=== PATIENT | female | born 1995 | race Caucasian/White ===

== ENCOUNTER 2016-12-30 18:25 | Emergency (ER) | payer OTHER ==
[2016-12-30 18:46] VITALS: TEMP 98.5
--- NOTE | 2016-12-30 19:49 | ED ---
Psych HPI - General Chief Complaint: Psychiatric Symptoms Stated Complaint: panic attack Time Seen by Provider: 12/30/16 18:56 Source: patient, RN notes reviewed Mode of arrival: ambulatory - History of Present Illness Initial Comments: Patient is a 21-year-old female with a chief complaint of anxiety and hypervigilance for approximately 3 years. Patient reports that she had a anxiety attack today which brought her into the emergency department. She denies any suicidal ideations. She states that she does not want any medication for anxiety but just wants to talk to us appear seek psychiatric help. She reports that she is supposed to see Dr. Zambrano this 2 weeks ago however the appointment became canceled for an emergency reason. Patient denies any homicidal ideations or any auditory or visual hallucinations. She reports that she is constantly on edge and feels like her stress levels an 8 out of 10. She states it takes very little to force her to become to have an anxiety attack. She states that her anxiety has been caused her to be depressed. The patient every once leave her house. She denies any self-harm. - Related Data Previous Rx's Medication Instructions Recorded LORazepam [Ativan] 0.5 mg PO BID #10 tab 12/30/16 Allergies Allergy/AdvReac Type Severity Reaction Status Date / Time No Known Allergies Allergy Verified 12/30/16 19:10 Review of Systems ROS Statement: Those systems with pertinent positive or pertinent negative responses have been documented in the HPI. ROS Other: All systems not noted in ROS Statement are negative. Past Medical History Additional Past Medical History / Comment(s): sinus problems, seasonal allergies History of Any Multi-Drug Resistant Organisms: None Reported Past Surgical History: Orthopedic Surgery Past Psychological History: No Psychological Hx Reported Smoking Status: Never smoker Past Alcohol Use History: Occasional Past Drug Use History: None Reported General Exam - General Exam Comments Initial Comments: Well-appearing 20-year-old 1-year-old female. She doesn't appear to be in any acute distress. Limitations: no limitations General appearance: alert, in no apparent distress Head exam: Present: atraumatic, normocephalic, normal inspection Eye exam: Present: normal appearance, PERRL, EOMI. Absent: scleral icterus, conjunctival injection, periorbital swelling ENT exam: Present: normal exam, mucous membranes moist Neck exam: Present: normal inspection. Absent: tenderness, meningismus, lymphadenopathy Respiratory exam: Present: normal lung sounds bilaterally. Absent: respiratory distress, wheezes, rales, rhonchi, stridor Cardiovascular Exam: Present: regular rate, normal rhythm, normal heart sounds. Absent: systolic murmur, diastolic murmur, rubs, gallop, clicks GI/Abdominal exam: Present: soft, normal bowel sounds. Absent: distended, tenderness, guarding, rebound, rigid Extremities exam: Present: normal inspection, full ROM, normal capillary refill. Absent: tenderness, pedal edema, joint swelling, calf tenderness Back exam: Present: normal inspection Neurological exam: Present: alert, oriented X3, CN II-XII intact Psychiatric exam: Present: normal affect, normal mood, anxious (Patient reports that she is anxious but denies any suicidal or homicidal ideations. She reports this is chronic anxiety.) Skin exam: Present: warm, dry, intact, normal color. Absent: rash Course Vital Signs 12/30/16 12/30/16 18:43 21:32 Temperature 98.5 F Pulse Rate 95 83 Respiratory 18 16 Rate Blood Pressure 122/78 138/74 O2 Sat by Pulse 99 100 Oximetry Medical Decision Making - Medical Decision Making Patient is a well-appearing 21-year-old female. She has a history of anxiety and depression. She denies any suicidal plan the side ideations. Patient will be seen by EPS at this time is medically clear. Patient discussed emotions with the EPS nurse. Patient will be given outpatient referrals for psychiatrist and feels much better at this time. Patient requests acute angiolytic medication at this time. I discussed the possibility of addiction and patient agrees that she does not take it regularly.. I will give the patient 1 mg of Ativan emergency department for a go home and to put her mind at ease and to rest. I will write the patient for a short prescription for Ativan. Patient understands that she needs to follow-up with primary care doctor to be evaluated and received the proper medication for her psychiatric illnesses. Patient understands treatment plan will comply. Return parameters were discussed. - Lab Data Lab Results 12/30/16 Range/Units 20:14 Urine Opiates Screen Not Detected (NotDetected) Ur Oxycodone Screen Not Detected (NotDetected) Urine Methadone Screen Not Detected (NotDetected) Ur Propoxyphene Screen Not Detected (NotDetected) Ur Barbiturates Screen Not Detected (NotDetected) U Tricyclic Antidepress Not Detected (NotDetected) Ur Phencyclidine Scrn Not Detected (NotDetected) Ur Amphetamines Screen Not Detected (NotDetected) U Methamphetamines Scrn Not Detected (NotDetected) U Benzodiazepines Scrn Not Detected (NotDetected) Urine Cocaine Screen Not Detected (NotDetected) U Marijuana (THC) Screen Detected H (NotDetected) Disposition Clinical Impression: Anxiety Disposition: HOME SELF-CARE Condition: Good Instructions: Anxiety (ED) Additional Instructions: Patient finds to follow-up with outpatient referrals. Return to emergency department if any alarming signs or symptoms occur. Prescriptions: LORazepam [Ativan] 0.5 mg PO BID #10 tab Referrals: Jordy Martin Jr, DO [Primary Care Provider] - 1-2 days Time of Disposition: 21:21
[2016-12-30] MEDS ORDERED: LORazepam 1 MG TAB PO STA (21:20)
[2016-12-30 21:33] VITALS: BP 138/74; PULSE 83; RESP 16
== END 2016-12-30 21:32 | disposition home or self-care (01) ==
LOC: EC 18:25
DX: F41.9 Anxiety disorder, unspecified (principal); F32.9 Major depressive disorder, single episode, unspecified
CPT/HCPCS: 80306; 82075; 99284

== ENCOUNTER → 2019-02-15 | Outpatient (CLI) | payer OTHER ==
--- NOTE | 2019-02-15 15:44 | US ---
EXAMINATION TYPE: US kidneys/renal and bladder DATE OF EXAM: 02/15/2019 COMPARISON: US 2015 ABD CLINICAL HISTORY: frequent UTI,and cystitis N30.01. Frequent/recurrent UTIs. EXAM MEASUREMENTS: Right Kidney: 9.1 x 4.9 x 4.8 cm Left Kidney: 10.1 x 5.0 x 5.0 cm Post Void Residual Volume: Not performed Large body habitus. Difficult, limited exam. Right Kidney: No hydronephrosis or masses seen Left Kidney: No hydronephrosis or masses seen Bladder: appears anechoic. Bilateral Jets seen: Yes IMPRESSION: No hydronephrosis or nephrolithiasis. Urinary bladder appears anechoic without focal wall thickening. No sonographic sequela of medical renal disease.
== END | disposition home or self-care (01) ==
LOC: RADUSWWP 14:09
PROVIDERS: ATTEND Family Medicine
DX: N30.01 Acute cystitis with hematuria (principal)
CPT/HCPCS: 76770

== ENCOUNTER → 2021-08-14 | Outpatient (CLI) | payer BC, OTHER ==
[2021-08-14 13:50] LABS: Basophils % (A) 0 %; Eosinophils # (A) 0.3 k/uL (0-0.7); Eosinophils % (A) 5 %; HCT 41.3 % (34.0-46.0); HGB 13.5 gm/dL (11.4-16.0); Lymphocytes # (A) 2.2 k/uL (1.0-4.8); Lymphocytes % (A) 35 %; MCH 28.8 pg (25.0-35.0); MCHC 32.6 g/dL (31.0-37.0); MCV 88.3 fL (80.0-100.0); Mean Platelet Volume 7.7; Monocytes # (A) 0.3 k/uL (0-1.0); Monocytes % (A) 4 %; Neutrophils # (A) 3.3 k/uL (1.3-7.7); Neutrophils % (A) 53 %; Platelet Count 315 k/uL (150-450); RBC 4.68 m/uL (3.80-5.40); RDW 12.5 % (11.5-15.5); WBC 6.3 k/uL (3.8-10.6)
== END | disposition home or self-care (01) ==
LOC: LABPAT 11:50
PROVIDERS: ATTEND Obstetrics & Gynecology
DX: Z01.812 Encounter for preprocedural laboratory examination (principal)
CPT/HCPCS: 85025

== ENCOUNTER 2021-08-17 06:23 | Day surgery (SDC) | payer BC, OTHER ==
[2021-08-14 13:13] VITALS: BMI 33.7
--- NOTE | 2021-08-16 20:24 | P.HPOB ---
History of Present Illness H&P Date: 08/16/21 Chief Complaint: Recurrent Bartholin's cyst This is a 26 y.o. female, 0, para 0, who presents for exam under anesthesia and drainage of recurrent right bartholin's cyst with abscess, possible word catheter placement. She has been having symptoms off and on for at least a couple years. The area swells and gets tender. Any time she drinks caffeine or alcohol, her symptoms worsen. She is unable to tolerate a pelvic exam in the office due to pain. OB Hx: G0. [employer] Member Hx: Currently sexually active with 1 partner. Uses condoms. No history of STDs. Social Hx: Single. Babysits. Review of Systems Constitutional: Reports night sweats, Denies chills, Denies fever Eyes: denies blurred vision, denies pain Ears, nose, mouth and throat: Denies headache, Denies sore throat Cardiovascular: Denies chest pain, Denies shortness of breath Respiratory: Denies cough Gastrointestinal: Reports bloating, Denies abdominal pain, Denies diarrhea, Denies nausea, Denies vomiting Genitourinary: Reports dysmenorrhea, Reports pelvic pain, Reports urinary frequency Menstruation: Reports menses variable Musculoskeletal: Denies myalgias Integumentary: Denies pruritus, Denies rash Neurological: Denies numbness, Denies weakness Psychiatric: Reports anxiety, Reports depression, Reports difficulty concentrating, Reports irritability Endocrine: Reports flushing Past Medical History Past Medical History: Thyroid Disorder Additional Past Medical History / Comment(s): Sinus problems, seasonal allergies. History of Any Multi-Drug Resistant Organisms: None Reported Past Surgical History: Orthopedic Surgery Additional Past Surgical History / Comment(s): Right ankle surgery with screws. [place] teeth. Past Anesthesia/Blood Transfusion Reactions: No Reported Reaction, Motion Sickness Past Psychological History: ADD/ADHD, Anxiety Smoking Status: Never smoker Past Alcohol Use History: Occasional Past Drug Use History: None Reported - Past Family History Mother History Unknown: Yes Family Medical History: Thyroid Disorder Father History Unknown: Yes Family Medical History: Diabetes Mellitus Medications and Allergies Home Medications Medication Instructions Recorded Confirmed Type Levothyroxine Sodium 125 mcg PO QAM 08/14/21 08/14/21 History Lisdexamfetamine Dimesylate 40 mg PO DAILY 08/14/21 08/14/21 History [Vyvanse] Allergies Allergy/AdvReac Type Severity Reaction Status Date / Time No Known Allergies Allergy Verified 08/17/21 06:45 Exam Osteopathic Statement: *. No significant issues noted on an osteopathic structural exam other than those noted in the History and Physical/Consult. HEENT: within normal limits Heart: regular rate and rhythm Lungs: clear to auscultation bilaterally Abdomen: soft, non-tender Pelvic: Exquisitely tender right Bartholin's gland cyst, swollen, tender. Remainder of pelvic exam deferred to OR due to pain. Extremities: neg. Thomas's. Assessment and Plan (1) Bartholin's gland abscess Current Visit: No Status: Acute Code(s): N75.1 - ABSCESS OF BARTHOLIN'S GLAND SNOMED Code(s): 98727761 Plan: Proceed with examination under anesthesia, drainage of right Bartholin's gland cyst abscess, possible word catheter placement. I have discussed the risks, benefits, and alternative therapies for the above- mentioned procedure and for both sedation/anesthesia as well as necessary blood products administration, if indicated, as they pertain to this patient. The patient has indicated her understanding and acceptance of the risks and procedures discussed.
[~2021-08-17 06:23] MED LIST: DEXAMETHASONE SOD PHOSPHATE 4 MG/ML 1 ML VIAL IV ONE; LACTATED RINGERS 1,000 ML IV SCH; LIDOCAINE 1% (10MG/ML) FOR IV START INTRADERMA PRN; ONDANSETRON 4 MG/2 ML VIAL IVP ONE; SCOPOLAMINE 1.5MG/72HR PATCH TRANSDERM ONE
[2021-08-17] MEDS ORDERED: HYDROmorphone 0.5 MG/0.5 ML SYRINGE IVP PRN (07:00)
[2021-08-17] MEDS ORDERED: MIDAZOLAM 2 MG/2 ML VIAL IV ONE (07:10)
[2021-08-17] MEDS ORDERED: MIDAZOLAM 2 MG/2 ML VIAL ONE (07:35)
[2021-08-17] MEDS ORDERED: LIDOCAINE 1% INJ 10MG/ML (20 ML MDV) ONE (07:35)
[2021-08-17] MEDS ORDERED: fentaNYL (PF) 50 MCG/ML 2 ML AMP ONE (07:35)
[2021-08-17] MEDS ORDERED: PROPOFOL 10 MG/ML 20 ML VIAL IV ONE (07:35)
[2021-08-17] MEDS ORDERED: KETOROLAC 15 MG/ML 1 ML VIAL ONE (07:35)
--- NOTE | 2021-08-17 08:19 | P.OP ---
Date of Procedure: 08/17/21 Preoperative Diagnosis: Right Bartholin's gland cyst abscess Postoperative Diagnosis: Same Procedure(s) Performed: Marsupialization of right Bartholin's gland cyst abscess Examination under anesthesia Anesthesia: other (LMA general) Surgeon: Licha Hernandez Estimated Blood Loss (ml): 15 Pathology: none sent Condition: stable Disposition: same day Indications for Procedure: This is a 26 y.o. female, 0, para 0, who presents for exam under anesthesia and drainage of recurrent right bartholin's cyst with abscess, possible word catheter placement. She has been having symptoms off and on for at least a couple years. The area swells and gets tender. Any time she drinks caffeine or alcohol, her symptoms worsen. She is unable to tolerate a pelvic exam in the office due to pain. Operative Findings: A very large right Bartholin's gland cyst abscess is noted. A large amount of yellow pussy discharge is extruded from the cyst. On pelvic exam, the patient is on her menses. Uterus is found to be small, anteverted, with no adnexal masses palpated. Description of Procedure: The patient is taken to the operating room where she is placed in the dorsal lithotomy position. Her bladder is drained with a catheter and then removed. A visible large right Bartholin's gland cyst is noted that extends all the way up to the upper right labia. The patient is noted to be on her menses. A pelvic exam is performed and uterus is found to be anteverted, small, with no adnexal masses elevated. The left Bartholin's gland appears normal. Next a 15 blade is used to incise the right Bartholin's gland cyst abscess just outside of the hymenal ring the right side. A large amount of yellow brown pussy fluid is drained. Next the small cuts is sewn open with 3-0 Vicryl suture in a running locked fashion around the edges of the cut, in order to keep the cut open. A second layer of 0 Vicryl suture in a running locked fashion is used for hemostasis. One interrupted stitches placed on the inner edge of the suture line to control bleeding. A hemostat is placed within the cut to make sure that it is still open. It is still draining brownish fluid. Minimal bleeding is noted. All instruments are removed from the patient. Sponge and needle counts are correct. The patient is then taken to recovery room in stable condition.
[2021-08-17 08:33] VITALS: TEMP 98.1
[2021-08-17 08:54] VITALS: RESP 18
[2021-08-17] MEDS ORDERED: ACETAMINOPHEN TAB 500 MG TAB ONE (09:02)
[2021-08-17] MEDS ORDERED: ACETAMINOPHEN TAB 500 MG TAB PO ONE (09:03)
[2021-08-17 09:06] VITALS: BP 101/56; PULSE 67
== END 2021-08-17 09:35 | disposition home or self-care (01) ==
LOC: OR 06:23
PROVIDERS: ATTEND Obstetrics & Gynecology
DX: N75.0 Cyst of Bartholin's gland (principal); F90.9 Attention-deficit hyperactivity disorder, unspecified type; Z79.899 Other long term (current) drug therapy; Z83.3 Family history of diabetes mellitus; Z83.49 Family history of other endocrine, nutritional and metabolic diseases
CPT/HCPCS: 56440; 81025; J2250; J1100; J0690; J2405; J2001; J3010; J1885; J2704; J1170

== ENCOUNTER 2021-08-27 16:54 | Emergency (ER) | payer BC, OTHER ==
[2021-08-27 17:51] VITALS: TEMP 97.4
[2021-08-27] MEDS ORDERED: SODIUM CHLORIDE 0.9% 1,000 ML IV STA (19:58)
--- NOTE | 2021-08-27 20:02 | ED ---
General Adult HPI - General Chief complaint: Dizziness Stated complaint: Dizzy, nausea Time Seen by Provider: 08/27/21 19:47 Source: patient, RN notes reviewed, old records reviewed Mode of arrival: ambulatory Limitations: no limitations - History of Present Illness Initial comments: Well-appearing 26-year-old female presents to the emergency room with complaints of 1 month of feeling intermittent dizziness and brain fog with occasional shortness of breath. She states that she has seen her primary care doctor and had her thyroid levels checked. She also recently had a Bartholin's gland cyst surgery on August 17. She states that she is not sure what is causing her feelings of dizziness and intermittent shortness of breath and brain fog however she is concerned about Covid She states that she did get a vaccine. She denies any fevers, vomiting or diarrhea. She states sometimes her shortness of breath will get better if she takes her mask off. She denies any alcohol or drug use and she is a nonsmoker. -: month(s) (1) Location: head ("foggy") Severity scale (1-10): 0 Consistency: intermittent Associated Symptoms: shortness of breath, other (fatigue) - Related Data Home Medications Medication Instructions Recorded Confirmed Levothyroxine Sodium 125 mcg PO QAM 08/14/21 08/14/21 Lisdexamfetamine Dimesylate 40 mg PO DAILY 08/14/21 08/14/21 [Vyvanse] Previous Rx's Medication Instructions Recorded Sulfamethox-Tmp 800-160Mg [Bactrim 1 each PO Q12HR 3 Days #6 tab 08/27/21 Ds] Allergies Allergy/AdvReac Type Severity Reaction Status Date / Time No Known Allergies Allergy Verified 08/27/21 17:45 Review of Systems ROS Statement: Those systems with pertinent positive or pertinent negative responses have been documented in the HPI. ROS Other: All systems not noted in ROS Statement are negative. Past Medical History Additional Past Medical History / Comment(s): sinus problems, seasonal allergies History of Any Multi-Drug Resistant Organisms: None Reported Past Surgical History: Orthopedic Surgery Past Psychological History: No Psychological Hx Reported Smoking Status: Never smoker Past Alcohol Use History: Occasional Past Drug Use History: None Reported General Exam Limitations: no limitations General appearance: alert, in no apparent distress Head exam: Present: atraumatic, normocephalic, normal inspection Eye exam: Present: normal appearance, EOMI ENT exam: Present: normal exam, mucous membranes moist Neck exam: Present: normal inspection, full ROM Respiratory exam: Present: normal lung sounds bilaterally. Absent: respiratory distress, wheezes, rales, rhonchi, stridor Cardiovascular Exam: Present: regular rate, normal rhythm, normal heart sounds. Absent: systolic murmur, diastolic murmur, rubs, gallop, clicks, JVD GI/Abdominal exam: Present: soft, normal bowel sounds. Absent: distended, tenderness, guarding, rebound, rigid Extremities exam: Present: full ROM. Absent: pedal edema Neurological exam: Present: alert, oriented X3 Psychiatric exam: Present: normal affect, normal mood, other (tearful) Skin exam: Present: warm, dry, intact, normal color. Absent: rash, cyanosis, diaphoretic Course Vital Signs 08/27/21 08/27/21 17:45 22:28 Temperature 97.4 F L Pulse Rate 80 74 Respiratory 20 18 Rate Blood Pressure 133/82 115/80 O2 Sat by Pulse 99 98 Oximetry EKG Findings - EKG Results: EKG: sinus rhythm (Ventricular rate 62, NM interval 0.158, QRS 0.76, QTC 0.410) Medical Decision Making - Medical Decision Making This is a well-appearing anxious 26-year-old female who presents to the emergency room with complaints of just not feeling herself. She had a Bartholin's gland abscess drained on August [address] Hernandez. Lab work shows no evidence of leukocytosis. Electrolytes are unremarkable. Patient was found to have a urinary tract infection. Her abdomen is soft and nontender. She'll be treated with Bactrim. She was also given Zofran as requested for any nausea. Chad thompson instructed to follow-up with her primary care doctor next week. Return to the emergency room with any worsening symptoms. Patient is agreeable to this plan of care. Case discussed with Dr. Cohen. - Lab Data Result diagrams: 08/27/21 20:15 08/27/21 20:15 Lab Results 08/27/21 08/27/21 08/27/21 Range/Units 20:15 20:15 20:15 WBC 7.5 (3.8-10.6) k/uL RBC 4.78 (3.80-5.40) m/uL Hgb 14.3 (11.4-16.0) gm/dL Hct 41.1 (34.0-46.0) % MCV 86.0 (80.0-100.0) fL MCH 29.9 (25.0-35.0) pg MCHC 34.8 (31.0-37.0) g/dL RDW 12.9 (11.5-15.5) % Plt Count 321 (150-450) k/uL MPV 7.5 Neutrophils % 52 % Lymphocytes % 37 % Monocytes % 4 % Eosinophils % 4 % Basophils % 0 % Neutrophils # 3.9 (1.3-7.7) k/uL Lymphocytes # 2.8 (1.0-4.8) k/uL Monocytes # 0.3 (0-1.0) k/uL Eosinophils # 0.3 (0-0.7) k/uL Basophils # 0.0 (0-0.2) k/uL Sodium 139 (137-145) mmol/L Potassium 4.3 (3.5-5.1) mmol/L Chloride 106 (98-107) mmol/L Carbon Dioxide 24 (22-30) mmol/L Anion Gap 9 mmol/L BUN 9 (7-17) mg/dL Creatinine 0.59 (0.52-1.04) mg/dL Est GFR (CKD-EPI)AfAm >90 (>60 ml/min/1.73 sqM) Est GFR (CKD-EPI)NonAf >90 (>60 ml/min/1.73 sqM) Glucose 100 H (74-99) mg/dL Calcium 10.1 (8.4-10.2) mg/dL Total Bilirubin 0.4 (0.2-1.3) mg/dL AST 24 (14-36) U/L ALT 23 (4-34) U/L Alkaline Phosphatase 60 (38-126) U/L Total Protein 7.5 (6.3-8.2) g/dL Albumin 4.6 (3.5-5.0) g/dL Urine Color Yellow Urine Appearance Cloudy H (Clear) Urine pH 5.5 (5.0-8.0) Ur Specific [place] 1.021 (1.001-1.035) Urine Protein Negative (Negative) Urine Glucose (UA) Negative (Negative) Urine Ketones Negative (Negative) Urine Blood Negative (Negative) Urine Nitrite Negative (Negative) Urine Bilirubin Negative (Negative) Urine Urobilinogen <2.0 (<2.0) mg/dL Ur Leukocyte Esterase Large H (Negative) Urine RBC 3 (0-5) /hpf Urine WBC 14 H (0-5) /hpf Ur Squamous Epith Cells 3 (0-4) /hpf Urine Bacteria Moderate H (None) /hpf Urine Mucus Rare H (None) /hpf Disposition Clinical Impression: UTI (urinary tract infection) Disposition: HOME SELF-CARE Condition: Good Instructions (If sedation given, give patient instructions): Urinary Tract Infection in Women (ED) Additional Instructions: Take medication as prescribed and follow-up with her primary care doctor next week. Return to the emergency room with any new or worsening symptoms. Increase your fluid intake. Prescriptions: Sulfamethox-Tmp 800-160Mg [Bactrim Ds] 1 each PO Q12HR 3 Days #6 tab Is patient prescribed a controlled substance at d/c from ED?: No Referrals: Jordy Martin Jr, [Primary Care Provider] - 1-2 days Time of Disposition: 22:10
[2021-08-27 20:23] LABS: Basophils % (A) 0 %; Eosinophils # (A) 0.3 k/uL (0-0.7); Eosinophils % (A) 4 %; HCT 41.1 % (34.0-46.0); HGB 14.3 gm/dL (11.4-16.0); Lymphocytes # (A) 2.8 k/uL (1.0-4.8); Lymphocytes % (A) 37 %; MCH 29.9 pg (25.0-35.0); MCHC 34.8 g/dL (31.0-37.0); Mean Platelet Volume 7.5; Monocytes # (A) 0.3 k/uL (0-1.0); Monocytes % (A) 4 %; Neutrophils # (A) 3.9 k/uL (1.3-7.7); Neutrophils % (A) 52 %; Platelet Count 321 k/uL (150-450); RBC 4.78 m/uL (3.80-5.40); RDW 12.9 % (11.5-15.5); WBC 7.5 k/uL (3.8-10.6)
[2021-08-27 20:31] LABS: ALT 23 U/L (4-34); AST 24 U/L (14-36); African American GFR (CKD) >90 (>60 ml/min/1.73 sqM); Albumin 4.6 g/dL (3.5-5.0); Alkaline Phosphatase 60 U/L (38-126); Anion Gap 9 mmol/L; Blood Urea Nitrogen 9 mg/dL (7-17); Calcium 10.1 mg/dL (8.4-10.2); Carbon Dioxide 24 mmol/L (22-30); Chloride 106 mmol/L (98-107); Glucose 100 mg/dL (74-99); Non-African American GFR(CKD) >90 (>60 ml/min/1.73 sqM); Potassium 4.3 mmol/L (3.5-5.1); Sodium 139 mmol/L (137-145); Total Bilirubin 0.4 mg/dL (0.2-1.3); Total Protein 7.5 g/dL (6.3-8.2)
[2021-08-27] MEDS ORDERED: ONDANSETRON 4 MG/2 ML VIAL IVP STA (21:26)
[2021-08-27] MEDS: ONDANSETRON 4 MG TAB PO STA ×2 (21:39→21:40)
[2021-08-27] MEDS ORDERED: ONDANSETRON ODT 4 MG TAB PO STA (21:40)
[2021-08-27 21:44] LABS: Appearance,Urine Cloudy (Clear); Bacteria,Urine Moderate /hpf; Bilirubin,Urine Negative (Negative); Blood,Urine Negative (Negative); Color,Urine Yellow; Glucose,Urine (UA) Negative (Negative); Ketones,Urine Negative (Negative); Leukocyte Esterase,Urine Large (Negative); Mucus,Urine Rare /hpf; Nitrite,Urine Negative (Negative); PH, Urine 5.5 (5.0-8.0); Protein,Urine Negative (Negative); RBC,Urine 3 /hpf (0-5); Specific Gravity,Urine 1.021 (1.001-1.035); Squamous Epithelial Cell,Urine 3 /hpf (0-4); Urobilinogen,Urine <2.0 mg/dL (<2.0); WBC,Urine 14 /hpf (0-5)
[2021-08-27] MEDS ORDERED: SULFAMETHOX-TMP 800-160MG 1 EACH TAB PO STA (22:04)
[2021-08-27] MEDS ORDERED: ONDANSETRON 4 MG ODT STARTER PACK 2 TAB BTL PO STA (22:05)
[2021-08-27 22:30] VITALS: BP 115/80; PULSE 74; RESP 18
== END 2021-08-27 22:29 | disposition home or self-care (01) ==
LOC: EC 16:54
DX: N39.0 Urinary tract infection, site not specified (principal)
CPT/HCPCS: 99285; 96360; 36415; 93005; 80053; 85025; 81001; 87086; S0119

== ENCOUNTER → 2021-10-31 | Outpatient (CLI) | payer OTHER ==
[2021-10-31 12:23] LABS: Basophils % (A) 1 %; Eosinophils # (A) 0.4 k/uL (0-0.7); Eosinophils % (A) 7 %; HCT 42.5 % (34.0-46.0); HGB 13.8 gm/dL (11.4-16.0); Lymphocytes % (A) 36 %; MCH 28.5 pg (25.0-35.0); MCHC 32.3 g/dL (31.0-37.0); MCV 88.2 fL (80.0-100.0); Mean Platelet Volume 8.1; Monocytes # (A) 0.2 k/uL (0-1.0); Monocytes % (A) 4 %; Neutrophils # (A) 2.8 k/uL (1.3-7.7); Neutrophils % (A) 50 %; Platelet Count 279 k/uL (150-450); RBC 4.82 m/uL (3.80-5.40); RDW 13.1 % (11.5-15.5); WBC 5.6 k/uL (3.8-10.6)
== END | disposition home or self-care (01) ==
LOC: LABWHC1 10:35
PROVIDERS: ATTEND Obstetrics & Gynecology
DX: Z01.812 Encounter for preprocedural laboratory examination (principal)
CPT/HCPCS: 36415; 85025

== ENCOUNTER 2021-11-03 06:32 | Day surgery (SDC) | payer BC, OTHER ==
[2021-10-28 10:18] VITALS: BMI 32.0
--- NOTE | 2021-11-02 10:41 | P.HPOB ---
History of Present Illness H&P Date: 11/02/21 Chief Complaint: Recurrent Bartholin's gland cyst This is a 26 y.o. female, 0, who presents for exam under anesthesia and marsupilization of right Bartholin's gland cyst due to recurrence. She recently had marsupilization of this cyst in 08/2021. She returned to the office in September with complaints of foul discharge and continued discomfort. She initially felt better after surgery, but then had symptoms of urinary tract infection. She was given antibiotics and antifungals. On exam, it appears the area of marsupilization had healed over and stitches were falling out. She is unable to tolerate exam in the office and therefore will undergo exam under ane sthesia with a larger marsupilization of right Bartholin's gland cyst. She has been dealing with this Bartholin's cyst for almost 2 years. 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 Unemployed. Review of Systems Constitutional: Denies chills, Denies fever Eyes: denies blurred vision, denies pain Ears, nose, mouth and throat: Denies headache, Denies sore throat Cardiovascular: Denies chest pain, Denies shortness of breath Respiratory: Denies cough Gastrointestinal: Denies abdominal pain, Denies diarrhea, Denies nausea, Denies vomiting Genitourinary: Reports dysmenorrhea, Reports dysuria, Reports pelvic pain, Reports urinary frequency, Reports vaginal discharge, Reports vaginal odor Menstruation: Reports period normal Musculoskeletal: Denies myalgias Integumentary: Denies pruritus, Denies rash Neurological: Denies numbness, Denies weakness Psychiatric: Reports anxiety, Reports depression, Reports difficulty concentrating, Reports irritability Endocrine: Reports flushing Past Medical History Past Medical History: Thyroid Disorder Additional Past Medical History / Comment(s): Sinus problems, seasonal allergies. History of Any Multi-Drug Resistant Organisms: None Reported Past Surgical History: Orthopedic Surgery Additional Past Surgical History / Comment(s): Right ankle surgery with screws, right bartholin gland surgery. [place] teeth. Past Anesthesia/Blood Transfusion Reactions: Motion Sickness Past Psychological History: ADD/ADHD, Anxiety Smoking Status: Never smoker Past Alcohol Use History: Occasional Past Drug Use History: None Reported - Past Family History Mother Family Medical History: AFIB, Thyroid Disorder Father Family Medical History: Diabetes Mellitus Medications and Allergies Home Medications Medication Instructions Recorded Confirmed Type Levothyroxine Sodium 125 mcg PO QAM 08/14/21 10/28/21 History Lisdexamfetamine Dimesylate 40 mg PO DAILY 08/14/21 10/28/21 History [Vyvanse] Escitalopram [Lexapro] 10 mg PO HS 10/28/21 10/28/21 History Allergies Allergy/AdvReac Type Severity Reaction Status Date / Time No Known Allergies Allergy Verified 10/28/21 10:10 Exam Osteopathic Statement: *. No significant issues noted on an osteopathic structural exam other than those noted in the History and Physical/Consult. HEENT: within normal limits Heart: regular rate and rhythm Lungs: clear to auscultation bilaterally Abdomen: soft, non-tender Pelvic: R. Bartholin's gland swollen and tender. Unable to fully evaluate pelvic area due to patient discomfort. Extremities: negative Thomas's. Assessment and Plan (1) Bartholin's gland abscess Current Visit: No Status: Chronic Code(s): N75.1 - ABSCESS OF BARTHOLIN'S GLAND SNOMED Code(s): 67377399 Plan: Proceed with exam under anesthesia and marsupilization of right Bartholin's gland cyst. I have discussed the risks, benefits, and alternative therapies for the above- mentioned procedure and for both sedation/anesthesia as well as necessary blood products administration, if indicated, as they pertain to this patient. The patient has indicated her understanding and acceptance of the risks and procedures discussed.
[~2021-11-03 06:32] MED LIST changes: +MIDAZOLAM 2 MG/2 ML VIAL IV PRN; -SCOPOLAMINE 1.5MG/72HR PATCH TRANSDERM ONE
[2021-11-03] MEDS ORDERED: HYDROmorphone 0.5 MG/0.5 ML SYRINGE IVP PRN (07:00)
[2021-11-03] MEDS ORDERED: SCOPOLAMINE 1.5MG/72HR PATCH TRANSDERM ONE (07:11)
[2021-11-03] MEDS ORDERED: fentaNYL (PF) 50 MCG/ML 2 ML AMP ONE (07:40)
[2021-11-03] MEDS ORDERED: LIDOCAINE 1% INJ 10MG/ML (20 ML MDV) ONE (07:40)
[2021-11-03] MEDS ORDERED: PROPOFOL 10 MG/ML 20 ML VIAL IV ONE (07:40)
[2021-11-03] MEDS ORDERED: MIDAZOLAM 2 MG/2 ML VIAL ONE (07:40)
[2021-11-03] MEDS ORDERED: SUCCINYLCHOLINE CHLORIDE 100 MG/5 ML SYR IV ONE (07:40)
[2021-11-03] MEDS ORDERED: KETOROLAC 15 MG/ML 1 ML VIAL ONE (07:40)
[2021-11-03] MEDS ORDERED: HYDROmorphone (PF) 1 MG/ML ONE (07:40)
--- NOTE | 2021-11-03 08:20 | P.OP ---
Date of Procedure: 11/03/21 Preoperative Diagnosis: Recurrent right Bartholin's gland cyst Postoperative Diagnosis: Same Procedure(s) Performed: Marsupialization of right Bartholin's gland cyst Examination under anesthesia Anesthesia: DORIS Surgeon: Licha Hernandez Estimated Blood Loss (ml): 10 Pathology: none sent Condition: stable Disposition: same day Indications for Procedure: This is a 26 y.o. female, 0, who presents for exam under anesthesia and marsupilization of right Bartholin's gland cyst due to recurrence. She recently had marsupilization of this cyst in 08/2021. She returned to the office in September with complaints of foul discharge and continued discomfort. She initially felt better after surgery, but then had symptoms of urinary tract infection. She was given antibiotics and antifungals. On exam, it appears the area of marsupilization had healed over and stitches were falling out. She is unable to tolerate exam in the office and therefore will undergo exam under anesthesia with a larger marsupilization of right Bartholin's gland cyst. She has been dealing with this Bartholin's cyst for almost 2 years. Operative Findings: Right labia is swollen especially more on the upper labia. It is very soft and cystic in nature. This seems slightly higher than a normal Bartholin's gland cyst. There is a large amount of brownish discharge that is extruded from the cyst. On speculum exam, it does appear that she may have some genital condyloma around the hymenal ring and around the urethra area with cauliflower-like tissue at these spots. Cervix appears nulliparous. Uterus is found to be small, anteverted, with no adnexal masses palpated. Description of Procedure: The patient is taken to the operating room where she is placed in the dorsal lithotomy position. She is prepped and draped in the normal sterile fashion. Next the right vulvar/Bartholin's gland cyst is palpated and a small cut was made with a 15 blade just above the area where I previously cut the last time I did the surgery. I entered into the cyst wall and a large amount of brown thin discharge was extruded. Once the cyst was drained, the opening was extended superiorly and inferiorly slightly. The edges of the cyst wall were sewn open and whipstitched fashion to the outside of the cut with 3-0 Vicryl suture. Bovie cautery was used for hemostasis and several interrupted stitches were also placed for hemostasis. Irrigation was carried out with normal saline. No active bleeding is noted and no further discharge from the cyst is noted. A weighted speculum was then placed in the patient's vagina. The cervix is visualized and appears to be nulliparous with no lesions noted. The hymenal ring and the urethra area do have some cauliflower-like tissue that appears to be possible condyloma. Pelvic exam is performed and uterus is sounded to be small, anteverted, with no adnexal masses located. All instrument's are removed from the vagina. All sponge and needle counts are correct. The patient is then taken to recovery room in stable condition.
[2021-11-03 08:30] VITALS: TEMP 97.6
[2021-11-03] MEDS ORDERED: LACTATED RINGERS 1,000 ML IV ONE (08:53)
[2021-11-03 09:03] VITALS: RESP 18
[2021-11-03 09:16] VITALS: BP 119/79; PULSE 68
== END 2021-11-03 09:36 | disposition home or self-care (01) ==
LOC: OR 06:32
PROVIDERS: ATTEND Obstetrics & Gynecology
DX: N75.0 Cyst of Bartholin's gland (principal); E07.9 Disorder of thyroid, unspecified; Z96.7 Presence of other bone and tendon implants; F90.9 Attention-deficit hyperactivity disorder, unspecified type; F41.9 Anxiety disorder, unspecified; F32.A Depression, unspecified; Z83.49 Family history of other endocrine, nutritional and metabolic diseases; Z82.49 Family history of ischemic heart disease and other diseases of the circulatory system; Z83.3 Family history of diabetes mellitus; Z98.890 Other specified postprocedural states; Z79.890 Hormone replacement therapy; Z79.899 Other long term (current) drug therapy
CPT/HCPCS: 81025; 56440; 57410; J2250; J1100; J0690; J2405; J2001; J3010; J1170; J1885; J0330; J2704

== ENCOUNTER → 2022-05-27 | Outpatient (CLI) | payer OTHER ==
--- NOTE | 2022-05-27 10:04 | US ---
EXAMINATION TYPE: US pelvic complete DATE OF EXAM: 05/27/2022 COMPARISON: NONE CLINICAL HISTORY: R10.9 ABD CRAMPING, PELVIC PAIN. Pelvic pain, 0, abnormal cycles TECHNIQUE: Transabdominal sonographic images of the pelvis were acquired. Date of LMP: 5-6 weeks ago EXAM MEASUREMENTS: Uterus: 7.2 x 3.4 x 4.5 cm Endometrial Stripe: 1.1 cm Right Ovary: 3.3 x 2.3 x 2.4 cm Left Ovary: 2.5 x 1.5 x 2.0 cm 1. Uterus: anteverted 2. Endometrium: appears wnl 3. Right Ovary: wnl 4. Left Ovary: wnl 5. Bilateral Adnexa: wnl 6. Posterior cul-de-sac: wnl IMPRESSION: No evidence for acute process.
--- NOTE | 2022-05-27 10:05 | US ---
EXAMINATION TYPE: US abdomen complete DATE OF EXAM: 05/27/2022 COMPARISON: US 2015 CLINICAL HISTORY: R10.9 ABD CRAMPING, PELVIC PAIN. RUQ pain TECHNIQUE: Multiple sonographic images of the abdomen are obtained. FINDINGS: EXAM MEASUREMENTS: Liver Length: 13.9 cm Gallbladder Wall: 0.2 cm CBD: 0.3 cm Spleen: 11.9 cm Right Kidney: 9.6 x 4.3 x 4.2 cm Left Kidney: 9.7 x 5.6 x 5.2 cm Pancreas: obscured by overlying midline bowel gas Liver: wnl Gallbladder: wnl Evidence for sonographic Rucker's sign: no CBD: wnl Spleen: wnl Right Kidney: wnl Left Kidney: wnl Upper IVC: wnl Abd Aorta: proximal portion obscured by overlying midline bowel gas, mid and distal portions wnl Overall exam is limited by patient body habitus and overlying bowel. The liver is homogenous. The in trahepatic portion of the IVC and proximal abdominal aorta are within normal limits. There is no malini dence of cholelithiasis. Common bile duct is unremarkable. The visualized portions of the pancreas are homogenous. The spleen is unremarkable. Kidneys are symmetric and free of hydronephrosis. No r enal lesions are seen. IMPRESSION: 1. No evidence for acute process is limited exam secondary to overlying bowel gas. 2. No evidence for cholelithiasis or acute cholecystitis.
== END | disposition home or self-care (01) ==
LOC: RADUSWWP 04-29 07:32
PROVIDERS: ATTEND Family Medicine
DX: R10.9 Unspecified abdominal pain (principal); R10.2 Pelvic and perineal pain
CPT/HCPCS: 76700; 76856

== ENCOUNTER 2023-12-03 12:16 | Emergency (ER) | payer OTHER ==
[2023-12-03 12:53] VITALS: BP 112/78; PULSE 68; RESP 20; TEMP 98.1
--- NOTE | 2023-12-03 13:08 | ED ---
Abdominal Pain HPI - General Source: patient, RN notes reviewed, old records reviewed Mode of arrival: ambulatory Limitations: no limitations <Dre Comer - Last Filed: 12/03/23 13:06> <Lester Pinzon - Last Filed: 12/03/23 15:49> - General Chief Complaint: Abdominal Pain Stated Complaint: pain in left side, SOB - History of Present Illness Initial Comments: This is a 28 female to the with abdominal pain and chest wall pain, thinks she pulled something (Dre Comer) 28-year-old female presents to the emergency department for chief complaint of left chest wall pain. Patient states she was wrestling with her boyfriend a few days ago and hit an object with her left ribs. It has been painful since however today at work she went to lift something and had much worse pain in the left ribs. States it now hurts to take a deep breath and talk. Patient has no other complaints at this time including shortness of breath, chest pain, abdominal pain, nausea or vomiting, headache, or visual changes. (Lester Pinzon) - Related Data Home Medications Medication Instructions Recorded Confirmed Levothyroxine Sodium 125 mcg PO QAM 08/14/21 10/28/21 Lisdexamfetamine Dimesylate 40 mg PO DAILY 08/14/21 10/28/21 [Vyvanse] Escitalopram [Lexapro] 10 mg PO HS 10/28/21 10/28/21 Previous Rx's Medication Instructions Recorded Lidocaine 5% Patch [Lidoderm 5% 1 patch TOPICAL DAILY #5 patch 12/03/23 Patch] Allergies Allergy/AdvReac Type Severity Reaction Status Date / Time No Known Allergies Allergy Verified 12/03/23 12:32 Review of Systems ROS Other: All systems not noted in ROS Statement are negative. <Dre Comer - Last Filed: 12/03/23 13:06> ROS Other: All systems not noted in ROS Statement are negative. <Lester Pinzon - Last Filed: 12/03/23 15:49> ROS Statement: Those systems with pertinent positive or pertinent negative responses have been documented in the HPI. Past Medical History Past Medical History: Thyroid Disorder Additional Past Medical History / Comment(s): Sinus problems, seasonal allergies. History of Any Multi-Drug Resistant Organisms: None Reported Past Surgical History: Orthopedic Surgery Additional Past Surgical History / Comment(s): Right ankle surgery with screws, right bartholin gland surgery. Past Anesthesia/Blood Transfusion Reactions: Motion Sickness Past Psychological History: ADD/ADHD, Anxiety Smoking Status: Never smoker Past Alcohol Use History: Occasional Past Drug Use History: Marijuana - Past Family History Mother Family Medical History: AFIB, Thyroid Disorder Father Family Medical History: Diabetes Mellitus <FátimamirnaDre - Last Filed: 12/03/23 13:06> General Exam Limitations: no limitations General appearance: alert, in no apparent distress Head exam: Present: atraumatic, normocephalic, normal inspection Eye exam: Present: normal appearance, PERRL, EOMI. Absent: scleral icterus, conjunctival injection, periorbital swelling ENT exam: Present: normal exam, mucous membranes moist Neck exam: Present: normal inspection. Absent: tenderness, meningismus, lymphadenopathy Respiratory exam: Present: normal lung sounds bilaterally. Absent: respiratory distress, wheezes, rales, rhonchi, stridor Cardiovascular Exam: Present: regular rate, normal rhythm, normal heart sounds. Absent: systolic murmur, diastolic murmur, rubs, gallop, clicks GI/Abdominal exam: Present: soft, normal bowel sounds. Absent: distended, tenderness, guarding, rebound, rigid Extremities exam: Present: normal inspection, full ROM, normal capillary refill. Absent: tenderness, pedal edema, joint swelling, calf tenderness Back exam: Present: normal inspection Neurological exam: Present: alert, oriented X3, CN II-XII intact Psychiatric exam: Present: normal affect, normal mood Skin exam: Present: warm, dry, intact, normal color. Absent: rash <Dre Comer - Last Filed: 12/03/23 13:06> General appearance: alert, in no apparent distress Head exam: Present: atraumatic Eye exam: Present: normal appearance, PERRL, EOMI ENT exam: Present: normal exam Neck exam: Present: normal inspection. Absent: tenderness, meningismus Respiratory exam: Present: normal lung sounds bilaterally, chest wall tenderness (She has left lateral anterior chest wall tenderness around ribs 7). Absent: respiratory distress, wheezes, rhonchi Cardiovascular Exam: Present: regular rate, normal rhythm, normal heart sounds GI/Abdominal exam: Present: soft, normal bowel sounds. Absent: distended, tenderness, guarding, rebound, rigid Back exam: Absent: CVA tenderness (R), CVA tenderness (L) Neurological exam: Present: alert, oriented X3 <Lester Pinzon - Last Filed: 12/03/23 15:49> Course <Dre Comer - Last Filed: 12/03/23 13:06> Vital Signs 12/03/23 12:29 Temperature 98.1 F Pulse Rate 68 Respiratory 20 Rate Blood Pressure 112/78 O2 Sat by Pulse 98 Oximetry - Reevaluation(s) Reevaluation #1: 12/03/23 13:[address] Comer completed (Dre Comer) Medical Decision Making <Lester Pinzon - Last Filed: 12/03/23 15:49> - Medical Decision Making Was pt. sent in by a medical professional or institution (, PA, SUPERVISOR GRIPS, urgent care, hospital, or residential...) When possible be specific @ -[No] Did you speak to anyone other than the patient for history (EMS, parent, family, police, friend...)? What history was obtained from this source @ -Mother Did you review nursing and triage notes (agree or disagree)? Why? @ -[I reviewed and agree with nursing and triage notes] Were old charts reviewed (outside hosp., previous admission, EMS record, old EKG, old radiological studies, urgent care reports/EKG's, residential records)? Report findings @ -[No old charts were reviewed] Differential Diagnosis (chest pain, altered mental status, abdominal pain women, abdominal pain men, vaginal bleeding, weakness, fever, dyspnea, syncope, headache, dizziness, GI bleed, back pain, seizure, CVA, palpatations, mental health)? @ -Differential Abdominal Pain Women: Appendicitis, Cholecystitis, diverticulosis, ischemic bowel, pancreatitis, h epatitis, UTI, gastroenteritis, AAA, incarcerated hernia, bowel obstruction, constipation, inflammatory bowel, hepatitis, peptic ulcer disease, splenic infarction, perforated viscus, vulvitis, ovarian torsion, PID, kidney stone, placenta abruption, this is not meant to be an all-inclusive list EKG interpreted by me (3pts min.). @ -None done X-rays interpreted by me (1pt min.). @ -[None done] CT interpreted by me (1pt min.). @ -[None done] U/S interpreted by me (1pt. min.). @ -[None done] What testing was considered but not performed or refused? (CT, X-rays, U/S, labs)? Why? @ -[None] What meds were considered but not given or refused? Why? @ -IM Toradol the patient refused as she did not want injection Did you discuss the management of the patient with other professionals (professionals i.e. , PA, SUPERVISOR GRIPS, lab, RT, psych nurse, criminal justice social worker, infirmary attendant, teacher, earth science technical officer, bilingual case manager)? Give summary @ -[No] Was smoking cessation discussed for >3mins.? @ -[No] Was critical care preformed (if so, how long)? @ -[No] Were there social determinants of health that impacted care today? How? (Homelessness, low income, unemployed, alcoholism, drug addiction, transportation, low edu. Level, literacy, decrease access to med. care, snf, rehab)? @ -[No] Was there de-escalation of care discussed even if they declined (Discuss DNR or withdrawal of care, Hospice)? DNR status @ -[No] What co-morbidities impacted this encounter? (DM, HTN, Smoking, COPD, CAD, Cancer, CVA, ARF, Chemo, Hep., AIDS, mental health diagnosis, sleep apnea, morbid obesity)? @ -[None] Was patient admitted / discharged? Hospital course, mention meds given and route, prescriptions, significant lab abnormalities, going to OR and other pertinent info. @ -28-year-old female presents to the emergency room for left rib pain after injury. She was seen and evaluated at bedside. Tenderness and reproducible on exam. X-ray of the left ribs was negative. Urinalysis negative for infection. Patient declined any IM medication and was given by mouth Motrin and a lidocaine patch. She will be discharged home to follow up with primary care. Undiagnosed new problem with uncertain prognosis? @ -[No] Drug Therapy requiring intensive monitoring for toxicity (Heparin, Nitro, Insulin, Cardizem)? @ -[No] Were any procedures done? @ -[No] Diagnosis/symptom? @ -Left rib pain Acute, or Chronic, or Acute on Chronic? @ -Acute Uncomplicated (without systemic symptoms) or Complicated (systemic symptoms)? @ -Uncomplicated Side effects of treatment? @ -[No] Exacerbation, Progression, or Severe Exacerbation? @ -[No] Poses a threat to life or bodily function? How? (Chest pain, USA, DC, pneumonia, PE, COPD, DKA, ARF, appy, cholecystitis, CVA, Diverticulitis, Homicidal, Suicidal, threat to staff... and all critical care pts) @ -[No] (Lester Pinzon) - Lab Data Lab Results 12/03/23 12/03/23 Range/Units 14:59 14:59 Urine Color Yellow Urine Appearance Cloudy H (Clear) Urine pH 5.5 (5.0-8.0) Ur Specific [place] 1.020 (1.001-1.035) Urine Protein Negative (Negative) Urine Glucose (UA) Negative (Negative) Urine Ketones Negative (Negative) Urine Blood Small H (Negative) Urine Nitrite Negative (Negative) Urine Bilirubin Negative (Negative) Urine Urobilinogen <2.0 (<2.0) mg/dL Ur Leukocyte Esterase Negative (Negative) Urine RBC 1 (0-5) /hpf Urine WBC 4 (0-5) /hpf Ur Squamous Epith Cells 4 (0-4) /hpf Urine Bacteria Occasional H (None) /hpf Urine Mucus Moderate H (None) /hpf Urine HCG, Qual Not Detected (Not Detectd) Disposition <Dre Comer - Last Filed: 12/03/23 13:06> Is patient prescribed a controlled substance at d/c from ED?: No Time of Disposition: 15:46 <Lester Pinzon - Last Filed: 12/03/23 15:49> Clinical Impression: Rib pain on left side Disposition: HOME SELF-CARE Condition: Good Instructions (If sedation given, give patient instructions): Costochondritis (ED) Additional Instructions: Please follow up with PCP in 1-2 days. Return to the ER for any worsening symptoms. Prescriptions: Lidocaine 5% Patch [Lidoderm 5% Patch] 1 patch TOPICAL DAILY #5 patch Referrals: Jin Caldwell MD [Primary Care Provider] - 1-2 days
[2023-12-03] MEDS: LIDOCAINE 4% PATCH TOPICAL STA (14:57)
[2023-12-03] MEDS: IBUPROFEN 600 MG TAB PO STA (14:57)
[2023-12-03] MEDS: KETOROLAC 15 MG/ML 1 ML VIAL IM STA (14:58)
[2023-12-03 15:35] LABS: Appearance,Urine Cloudy (Clear); Bacteria,Urine Occasional /hpf; Bilirubin,Urine Negative (Negative); Blood,Urine Small (Negative); Color,Urine Yellow; Glucose,Urine (UA) Negative (Negative); Ketones,Urine Negative (Negative); Leukocyte Esterase,Urine Negative (Negative); Mucus,Urine Moderate /hpf; Nitrite,Urine Negative (Negative); PH, Urine 5.5 (5.0-8.0); Protein,Urine Negative (Negative); RBC,Urine 1 /hpf (0-5); Squamous Epithelial Cell,Urine 4 /hpf (0-4); Urobilinogen,Urine <2.0 mg/dL (<2.0); WBC,Urine 4 /hpf (0-5)
--- NOTE | 2023-12-03 15:38 | XR ---
EXAMINATION TYPE: XR ribs LT w pa chest xray DATE OF EXAM: 12/03/2023 3:23 PM CLINICAL INDICATION:Female, 28 years old with history of pain; COMPARISON: None TECHNIQUE: XR ribs LT w pa chest xray; Frontal and oblique views of the ribs with frontal chest radio graph. FINDINGS: The ribs have a normal appearance. No evidence of fracture. Overall, the lungs are clear. The cardiac silhouette is normal in size. The remaining osseous structures are intact. Multilevel d egeneration changes throughout the spine. IMPRESSION: No acute osseous pathology.
== END 2023-12-03 16:32 | disposition home or self-care (01) ==
LOC: EC 12:16
DX: R07.81 Pleurodynia (principal); F41.9 Anxiety disorder, unspecified; F12.90 Cannabis use, unspecified, uncomplicated; E07.9 Disorder of thyroid, unspecified; Z79.890 Hormone replacement therapy; Z79.899 Other long term (current) drug therapy
CPT/HCPCS: 81001; 81025; 99285